=== PATIENT | female | born 1985 | race Caucasian/White ===

== ENCOUNTER 2017-01-06 09:28 | Emergency (ER) | payer MEDICAID, OTHER ==
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
[2017-01-06 09:54] VITALS: BP 117/91
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
[2017-01-06] MEDS ORDERED: Acetaminophen/HYDROcodone 325-10 MG Tab PO ONE (10:33)
[2017-01-06 10:41] LABS: CHLORIDE,CL 101 mmol/L (101-111); SODIUM,NA 136 mmol/L (135-145)
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
[2017-01-06] MEDS ORDERED: Diphtheria,Pertussis(Acell),Tetanus Vaccine 0.5 ML SDV IM ONE (10:51)
== END 2017-01-06 11:05 | disposition home or self-care (01) ==
LOC: DL.ED 09:28
DX: S30.0XXA Contusion of lower back and pelvis, initial encounter (principal); S00.01XA Abrasion of scalp, initial encounter; M54.6 Pain in thoracic spine; F17.210 Nicotine dependence, cigarettes, uncomplicated; Z91.040 Latex allergy status; Z91.030 Bee allergy status; Z88.8 Allergy status to other drugs, medicaments and biological substances; V49.9XXA Car occupant (driver) (passenger) injured in unspecified traffic accident, initial encounter
CPT/HCPCS: 36415; 71111; 72070; 72100; 80053; 80305; 81001; 81025; 85025; 90715; 99284; A9270; G0480

== ENCOUNTER 2019-08-21 05:29 | Emergency (ER) | payer SELFPAY ==
[2019-08-21 05:35] VITALS: BP 107/72; PULSE 79
[2019-08-21] MEDS ORDERED: Acetaminophen/HYDROcodone 325-10 MG Tab PO ONE (06:12)
--- NOTE | 2019-08-21 06:14 | EDM.PDOC ---
<Kylee Rivas - Last Filed: 08/21/19 06:09> ED HPI GENERAL MEDICAL PROBLEM - General Chief Complaint: Back Pain or Injury Stated Complaint: SLIPPED AND FELL Time Seen by Provider: 08/21/19 06:00 Source of Information: Reports: Patient, Family History Limitations: Reports: No Limitations - History of Present Illness INITIAL COMMENTS - FREE TEXT/NARRATIVE: ED with c/o pain to mid to low back and right ribs. States slipped and fell around 0500 while getting into car and landed on back. Lower Back Pain Score (Numeric/FACES): 7 - Related Data Allergies Allergy/AdvReac Type Severity Reaction Status Date / Time latex Allergy Rash Verified 08/21/19 05:44 prednisone Allergy Cannot Verified 08/21/19 05:44 Remember venom-honey bee Allergy Anaphylactic Verified 08/21/19 05:44 [bee venom (honey bee)] Shock Home Meds: Home Meds Albuterol Sulfate [Albuterol Sulfate HFA] 2 puff IH Q4HR PRN 07/16/15 [History] Past Medical History HEENT History: Reports: None Cardiovascular History: Reports: None Respiratory History: Reports: Asthma Gastrointestinal History: Reports: None Other Genitourinary History: Just got over having tricamonis Other Musculoskeletal History: 4th left finger fx. Left ankle fx. Neurological History: Reports: None Psychiatric History: Reports: None Endocrine/Metabolic History: Reports: None Hematologic History: Reports: None Immunologic History: Reports: None Oncologic (Cancer) History: Reports: None Dermatologic History: Reports: None - Infectious Disease History Infectious Disease History: Reports: Chicken Pox - Past Surgical History Head Surgeries/Procedures: Reports: None GI Surgical History: Reports: Cholecystectomy Female Surgical History: Reports: Section Social & Family History - Tobacco Use Smoking Status *Q: Current Every Day Smoker Years of Tobacco use: 24 Packs/Tins Daily: 1 - Caffeine Use Caffeine Use: Reports: Coffee - Recreational Drug Use Recreational Drug Use: No - Living Situation & Occupation Living situation: Reports: with Significant Other ED ROS GENERAL - Review of Systems Review Of Systems: ROS reveals no pertinent complaints other than HPI. ED EXAM,LOWER BACK PAIN/INJURY - Physical Exam Exam: See Below Exam Limited By: No Limitations General Appearance: Alert, Mild Distress, Thin Eye Exam: Bilateral Eye: EOMI Ears: Normal External Exam Nose: Normal Inspection Throat/Mouth: Normal Inspection Head: Atraumatic, Normocephalic Neck: Full Range of Motion. No: Tender Lateral, Tender Midline Respiratory/Chest: No Respiratory Distress, Normal Breath Sounds Cardiovascular: Normal Peripheral Pulses, Regular Rate, Rhythm Back Exam: Paraspinal Tenderness (thoracic right greater), Vertebral Tenderness (thoracic and lumbar) Extremities: Normal Inspection, Normal Range of Motion Neurological: Alert, Normal Mood/Affect Psychiatric: Normal Affect Skin Exam: Warm, Dry, Intact, Normal Color Course - Vital Signs Last Recorded V/S: Last Vital Signs Temp 36.8 C 08/21/19 05:32 Pulse 79 08/21/19 05:32 Resp 18 08/21/19 05:32 BP 107/72 08/21/19 05:32 Pulse Ox 100 08/21/19 05:32 - Orders/Labs/Meds Orders: Active Orders 24 hr Category Date Time Status Lumbar Spine 2 or 3V [CR] Urgent Exams 08/21/19 06:04 Taken Ribs 2V w Chest Rt [CR] Urgent Exams 08/21/19 06:04 Taken Thoracic Spine 3V [CR] Urgent Exams 08/21/19 06:04 Taken CULTURE URINE [RM] Stat Lab 08/21/19 06:16 Received Labs: Laboratory Tests 08/21/19 Range/Units 06:16 Urine Color Yellow (YELLOW) Urine Appearance Slightly cloudy (CLEAR) Urine pH 7.0 (5.0-9.0) Ur Specific [place] 1.020 (1.005-1.030) Urine Protein Negative (NEGATIVE) Urine Glucose (UA) Negative (NEGATIVE) Urine Ketones Negative (NEGATIVE) Urine Occult Blood Negative (NEGATIVE) Urine Nitrite Negative (NEGATIVE) Urine Bilirubin Negative (NEGATIVE) Urine Urobilinogen 1.0 (0.2-1.0) mg/dL Ur Leukocyte Esterase Trace H (NEGATIVE) Urine RBC Not seen /HPF Urine WBC 0-5 (0-5/HPF) /HPF Ur Epithelial Cells Moderate H (NOT SEEN) /HPF Amorphous Sediment Few (NOT SEEN) /HPF Urine Bacteria Few (0-FEW/HPF) /HPF Urine Mucus Few H (NOT SEEN) /LPF Meds: Medications Discontinued Medications Generic Name Dose Route Start Last Admin Trade Name Freq PRN Reason Stop Dose Admin Hydrocodone Bitart/Acetaminophen 1 tab 08/21/19 06:12 08/21/19 06:20 [place] 325-10 Mg PO 08/21/19 06:13 Not Given ONETIME ONE Tramadol HCl 50 mg 08/21/19 06:16 08/21/19 06:20 Ultram PO 08/21/19 06:17 50 mg ONETIME ONE Administration Departure - Departure Disposition: Home, Self-Care 01 Clinical Impression: Back pain Qualifiers: Back pain location: back pain in unspecified location Chronicity: acute Back pain laterality: unspecified Qualified Code(s): M54.9 - Dorsalgia, unspecified - Discharge Information Instructions: Pain Medicine Instructions, [id number] Forms: ED Department Discharge Additional Instructions: Flexeril 1 tablet by mouth three times a day as needed for back pain spasms. Caution sedation. RX given to the patient #9 Nabumetone, 1 tablet twice daily as needed for back pain. Do not take any NSAIDs along with this. Make sure and take with food. #12 no refills Ice or heat to the back whatever is best for you. Consider physical therapy if not improving over the next week. Return to the emergency department or worsening symptoms. Follow-up primary care provider next 4-6 days that improving sooner if worse <Chuck Dhaliwal - Last Filed: 08/21/19 07:17> Course - Radiology Interpretation Free Text/Narrative:: Xrays of the RIBS thoracic and lumbar spine negative per radiology. Departure - Departure Time of Disposition: 07:12 - Assessment/Plan Assessment:: Acute lower back pain SP fall. Plan: Flexeril 1 tablet by mouth three times a day as needed for back pain spasms. Caution sedation. RX given to the patient #9 Nabumetone, 1 tablet twice daily as needed for back pain. Do not take any NSAIDs along with this. Make sure and take with food. #12 no refills Ice or heat to the back whatever is best for you. Consider physical therapy if not improving over the next week. Return to the emergency department or worsening symptoms. Follow-up primary care provider next 4-6 days that improving sooner if worse
[2019-08-21] MEDS ORDERED: traMADol 50 MG Tab PO ONE (06:16)
== END 2019-08-21 07:26 | disposition home or self-care (01) ==
LOC: DL.ED 05:29
DX: M54.5 Low back pain (principal); M54.6 Pain in thoracic spine; J45.909 Unspecified asthma, uncomplicated; F17.210 Nicotine dependence, cigarettes, uncomplicated; Z91.040 Latex allergy status; Z88.8 Allergy status to other drugs, medicaments and biological substances; Z91.030 Bee allergy status; Z79.899 Other long term (current) drug therapy; W00.0XXA Fall on same level due to ice and snow, initial encounter
CPT/HCPCS: 71101; 72072; 72100; 81001; 87086; 99283; A9270